=== PATIENT | male | born 1995 | race Two or more races ===

== ENCOUNTER 2018-04-18 19:46 | Emergency (ER) | payer SELFPAY ==
--- NOTE | 2018-04-18 20:10 | ER Document Report ---
ED Medical Screen (RME) - General Chief Complaint: Laceration Stated Complaint: ARM INJURY Time Seen by Provider: 04/18/18 20:08 Notes: 22 years old male presents today with left antecubital laceration sustained by a broken glass. TRAVEL OUTSIDE OF THE [place] IN LAST 30 DAYS: No - Related Data Allergies/Adverse Reactions: No Known Allergies Allergy (Unverified 04/18/18 19:55)
[2018-04-18] MEDS ORDERED: LIDOCAINE 1%/EPINEPHRINE INJ 20 ML VIAL INJ ONE (21:04)
--- NOTE | 2018-04-18 21:06 | ER Document Report ---
ED Wound - General Chief Complaint: Laceration Stated Complaint: ARM INJURY Time Seen by Provider: 04/18/18 20:08 Notes: Patient is a 22-year-old male that comes to the emergency department for chief complaint of laceration to the left antecubital space. He states he was helping carrying a mirror when the mirror glass broke and the glass shard came down and stabbed him in the arm. He states he picked out a large piece of glass, unsure if he has retained glass or not. No other injuries reported. He is up-to-date on vaccination, had it last year, takes no daily medications, no other injuries or medical history reported. TRAVEL OUTSIDE OF THE [place] IN LAST 30 DAYS: No - Related Data Allergies/Adverse Reactions: No Known Allergies Allergy (Unverified 04/18/18 19:55) Past Medical History - General Information source: Patient - Social History Smoking Status: Current Every Day Smoker Chew tobacco use (# tins/day): No Frequency of alcohol use: None Drug Abuse: None Lives with: Family Family History: Reviewed & Not Pertinent Patient has suicidal ideation: No Patient has homicidal ideation: No - Medical History Medical History: Negative Renal/ Medical History: Denies: Hx Peritoneal Dialysis Surgical Hx: Negative - Immunizations Immunizations up to date: Yes Hx Diphtheria, Pertussis, Tetanus Vaccination: Yes Review of Systems - Review of Systems Constitutional: No symptoms reported EENT: No symptoms reported Cardiovascular: No symptoms reported Respiratory: No symptoms reported Gastrointestinal: No symptoms reported Genitourinary: No symptoms reported Male Genitourinary: No symptoms reported Musculoskeletal: See HPI Skin: See HPI Hematologic/Lymphatic: No symptoms reported Neurological/Psychological: No symptoms reported Physical Exam - Vital signs Vitals: Temp Pulse Resp BP Pulse Ox 98.5 F 74 18 135/78 H 100 04/18/18 22:35 04/18/18 22:35 04/18/18 22:35 04/18/18 22:35 04/18/18 22:35 - Notes Notes: GENERAL: Alert, interacts well. No acute distress. HEAD: Normocephalic, atraumatic. EYES: Pupils equal, round, and reactive to light. Extraocular movements intact. ENT: Oral mucosa moist, tongue midline. Oropharynx unremarkable. Airway patent. Nares patent, no nasal septal hematoma, TM's intact. NECK: Full range of motion. Supple. Trachea midline. LUNGS: Clear to auscultation bilaterally, no wheezes, rales, or rhonchi. No respiratory distress. HEART: Regular rate and rhythm. No murmur ABDOMEN: Soft, non-tender. Non-distended. Bowel sounds present in all 4 qu adrants. GENITOURINARY: Deferred EXTREMITIES: There is a 1 cm laceration which is irregular, partial-thickness, over the left antecubital space at the proximal forearm, this is moderately bleeding, there is no soft tissue swelling adjacent, normal range of motion of the elbow, normal distal neurovascular exam, normal upper extremity exam otherwise. BACK: no cervical, thoracic, lumbar midline tenderness. No saddle anesthesia, normal distal neurovascular exam. NEUROLOGICAL: Alert and oriented x3. Normal speech. [cranial nerves II through XII grossly intact]. PSYCH: Normal affect, normal mood. SKIN: Warm, dry, normal turgor. No rashes or lesions noted. Course - Re-evaluation Re-evalutation: Wound is moderately bleeding, blood through the dressing. However there is no arterial spurt. After I infiltrated the area with lidocaine with epinephrine the bleeding completely stopped. Able to explore, no evidence of foreign body, no evidence of deep injury including muscle, large vessel, or nerve. Normal neurovascular exam. X-ray unremarkable and shows no foreign body. Area repaired without difficulty, bleeding stopped. Area had been thoroughly irrigated, therefore no antibiotics were placed because there is no foreign body concern based on his evaluation. This was discussed. Discussed follow-up and return precautions. Patient and friend state understanding and agreement. - Vital Signs Vital signs: Temp Pulse Resp BP Pulse Ox 98.5 F 74 18 135/78 H 100 04/18/18 22:35 04/18/18 22:35 04/18/18 22:35 04/18/18 22:35 04/18/18 22:35 Procedures - Laceration/Wound Repair Left proximal forearm Wound length (cm): 1 Wound's Depth, Shape: Irregular Laceration pre-procedure: Sterile PPE donned, Sterile drapes applied, Shur-Clens applied Anesthetic type: 1% Lidocaine w/epi Volume Anesthetic (mLs): 3 Wound explored: Clean, No foreign body removed Irrigated w/ Saline (mLs): 50 Wound Repaired With: Sutures, Dermabond Suture Size/Type: 4:0, Nylon Number of Sutures: 2 Layer Closure?: No Post-procedure wound care: Sterile dressing applied Post-procedure NV exam normal: Yes Complications: No Notes: 04/19/18 06:21 After closure with 2 sutures the superior tip was still bleeding slightly, this was cleaned, and then approximated well with Dermabond. After this oozing/bleeding is stopped. Discharge - Discharge Clinical Impression: Laceration of left upper arm Qualifiers: Encounter type: initial encounter Qualified Code(s): S41.112A - Laceration without foreign body of left upper arm, initial encounter Condition: Stable Disposition: HOME, SELF-CARE Additional Instructions: The x-ray did not show foreign body. The Dermabond should come off on its own in about 5-7 days, if it does not you can apply a topical antibiotic or similar substance such as Vaseline to help remove it. Sutures can also be removed in 5-7 days at a medical facility. You can wash the area carefully, do not scrub, do not soak. Follow-up with primary care. Come back if you develop pain, swelling, spreading redness, fever, or any other concerning symptoms.
--- NOTE | 2018-04-18 21:59 | RADIOLOGY REPORT (SQ) ---
EXAM DESCRIPTION: XR ELBOW 1-2 VIEWS COMPLETED DATE/TME: 04/18/2018 21:04 CLINICAL HISTORY: 22 years, Male, laceration with glass; foreign bodies? COMPARISON: None. NUMBER OF VIEWS: TECHNIQUE: LIMITATIONS: None. FINDINGS: No evidence of radiopaque foreign body. No fracture or dislocation. Mineralization of bone appears normal. No evidence of elbow joint effusion. IMPRESSION: No evidence of radiopaque foreign body. copyright 2010 [employer]- All Rights Reserved
[2018-04-18 23:14] VITALS: BP 135/78
== END 2018-04-18 22:36 | disposition home or self-care (01) ==
LOC: ER 19:46
DX: S41.112A Laceration without foreign body of left upper arm, initial encounter (principal); W25.XXXA Contact with sharp glass, initial encounter; Y92.009 Unspecified place in unspecified non-institutional (private) residence as the place of occurrence of the external cause; F17.200 Nicotine dependence, unspecified, uncomplicated
CPT/HCPCS: 99283; 73070; 12001; J3490